=== PATIENT | female | born 1985 | race Caucasian/White ===

== ENCOUNTER 2018-09-28 07:49 | Emergency (ER) | payer MEDICAID ==
[2018-09-28] MEDS: ACETAMINOPHEN 325 MG TAB PO (08:28)
[2018-09-28 08:43] LABS: ADD MAN DIFF? NO
[2018-09-28 08:52] LABS: BASOPHILS % 0.3 % (0.0-2.0); EOSINOPHILS # 0.4 10^3/ul (0.0-0.5); EOSINOPHILS % 3.9 % (0.0-7.0); HEMATOCRIT 38.5 % (37.0-47.0); HEMOGLOBIN 13.2 g/dl (12.0-16.0); LYMPHOCYTES # 2.2 10^3/ul (0.8-2.9); LYMPHOCYTES % 21.7 % (15.0-51.0); MEAN CORPUSCULAR HEMOGLOBIN 29.2 pg (29.0-33.0); MEAN CORPUSCULAR HGB CONC 34.3 g/dl (32.0-37.0); MEAN CORPUSCULAR VOLUME 85.2 fl (82.0-101.0); MEAN PLATELET VOLUME 10.4 fl (7.4-10.4); MONOCYTE # 0.7 10^3/ul (0.3-0.9); MONOCYTES % 6.5 % (0.0-11.0); NEUTROPHIL # 6.7 10^3/ul (1.6-7.5); NEUTROPHILS % 67.2 % (39.0-77.0); PLATELET COUNT 302 10^3/UL (140-415); RED BLOOD COUNT 4.52 10^6/ul (4.20-5.40); RED CELL DISTRIBUTION WIDTH 11.9 % (11.5-14.5)
[2018-09-28 08:52] LABS: WHITE BLOOD COUNT 9.9 10^3/ul (4.8-10.8)
[2018-09-28 09:11] LABS: INR 0.94; PROTIME 12.7 Sec (11.9-14.9)
[2018-09-28 09:12] LABS: ALANINE AMINOTRANSFERASE 13 IU/L (13-69); ALBUMIN 4.4 g/dl (3.3-4.9); ALBUMIN/GLOBULIN RATIO 1.12; ALKALINE PHOSPHATASE 56 IU/L (42-121); ANION GAP 10 (5-13); ASPARTATE AMINO TRANSFERASE 19 IU/L (15-46); BILIRUBIN,INDIRECT 0.4 mg/dl (0-1.1); BILIRUBIN,TOTAL 0.4 mg/dl (0.2-1.3); BLOOD UREA NITROGEN 7 mg/dl (7-20); CALCIUM 9.9 mg/dl (8.4-10.2); CARBON DIOXIDE 25 mmol/L (21-31); CHLORIDE 104 mmol/L (97-110); CREATININE 0.49 mg/dl (0.44-1.00); Estimated GFR > 60 mL/min (>60); GLUCOSE 98 mg/dl (70-220); PARTIAL THROMBOPLASTIN TIME 30.4 Sec (23.0-35.0); POTASSIUM 3.8 mmol/L (3.5-5.1); SODIUM 139 mmol/L (135-144); TOTAL PROTEIN 8.3 g/dl (6.1-8.1)
[2018-09-28 09:24] LABS: ADD UMIC YES; UR ASCORBIC ACID NEGATIVE (NEGATIVE); UR BACTERIA FEW /HPF (NONE SEEN); UR BILIRUBIN (Dip) NEGATIVE (NEGATIVE); UR BLOOD (Dip) 1+ mg/dL (NEGATIVE); UR CLARITY CLEAR (CLEAR); UR COLOR STRAW (YELLOW); UR GLUCOSE (Dip) NEGATIVE (NEGATIVE); UR KETONES (Dip) NEGATIVE (NEGATIVE); UR LEUKOCYTE ESTERASE (Dip) NEGATIVE Leu/ul (NEGATIVE); UR NITRITE (Dip) NEGATIVE (NEGATIVE); UR RBC 0 /HPF (0-5); UR SPECIFIC GRAVITY (Dip) 1.004 (1.003-1.030); UR TOTAL PROTEIN (Dip) NEGATIVE (NEGATIVE); UR UROBILINOGEN (Dip) NEGATIVE (NEGATIVE); UR WBC 1 /HPF (0-5)
== END 2018-09-28 10:32 | disposition home or self-care (01) ==
LOC: FTE 07:49
DX: O20.9 Hemorrhage in early pregnancy, unspecified (principal); O10.911 Unspecified pre-existing hypertension complicating pregnancy, first trimester; R10.2 Pelvic and perineal pain; Z3A.08 8 weeks gestation of pregnancy
CPT/HCPCS: 36415; 76801; 80053; 81001; 84702; 85025; 85610; 85730; 86900; 86901; 99284-25

== ENCOUNTER 2019-04-09 12:35 | Inpatient (IN) | payer MEDICAID ==
[2019-04-09] MEDS: LACTATED RINGER'S 1,000 ML IV (15:21)
[2019-04-09 16:42] LABS: ADD MAN DIFF? NO
[2019-04-09 16:45] LABS: WHITE BLOOD COUNT 11.9 10^3/ul (4.8-10.8)
[2019-04-09 16:45] LABS: BASOPHILS % 0.2 % (0.0-2.0); EOSINOPHILS # 0.4 10^3/ul (0.0-0.5); HEMOGLOBIN 12.9 g/dl (12.0-16.0); LYMPHOCYTES % 17.1 % (15.0-51.0); MEAN CORPUSCULAR HEMOGLOBIN 29.9 pg (29.0-33.0); MEAN CORPUSCULAR HGB CONC 33.9 g/dl (32.0-37.0); MONOCYTE # 0.9 10^3/ul (0.3-0.9); MONOCYTES % 7.3 % (0.0-11.0); NEUTROPHIL # 8.5 10^3/ul (1.6-7.5); PLATELET COUNT 237 10^3/UL (140-415); RED BLOOD COUNT 4.32 10^6/ul (4.20-5.40); RED CELL DISTRIBUTION WIDTH 13.8 % (11.5-14.5)
[2019-04-09 17:00] LABS: INR 0.94; PROTIME 12.7 Sec (11.9-14.9)
[2019-04-09 17:01] LABS: PARTIAL THROMBOPLASTIN TIME 28.8 Sec (23.0-35.0)
[2019-04-09] MEDS ORDERED: MISOPROSTOL 200 MCG TAB PR (18:30)
[2019-04-09] MEDS ORDERED: METHYLERGONOVINE 0.2 MG INJ IM (18:30)
[2019-04-09] MEDS ORDERED: CARBOPROST 250 MCG INJ IM (18:30)
[2019-04-09] MEDS ORDERED: OXYTOCIN 30 UNITS/LR 500 ML IV (18:30)
[2019-04-09 19:07] LABS: HEPATITIS B SURFACE ANTIGEN NEGATIVE (NEGATIVE)
[2019-04-09] MEDS ORDERED: morphine 2 MG INJ IV (20:00)
[2019-04-09] MEDS ORDERED: NALBUPHINE HCL (10 MG/1 ML) INJ IV (20:00)
[2019-04-09] MEDS ORDERED: DIPHENHYDRAMINE 50 MG INJ IV (20:00)
[2019-04-09] MEDS ORDERED: TRIMETHOBENZAMIDE 100 MG/ML VIAL IM (20:00)
[2019-04-09] MEDS ORDERED: ONDANSETRON 4 MG INJ IV (20:00)
[2019-04-09] MEDS ORDERED: NALOXONE (0.4 MG/ML) INJ IV (20:00)
[2019-04-09] MEDS ORDERED: FENTAnyl 50 MCG/ML VIAL (20:11)
[2019-04-09] MEDS ORDERED: morphine SULFATE/PF (10 MG/10 ML) INJ (20:11)
[2019-04-09] MEDS ORDERED: OXYTOCIN 10 UNIT INJ (20:12)
[2019-04-09] MEDS ORDERED: METOCLOPRAMIDE 10 MG INJ (20:12)
[2019-04-09] MEDS: OXYTOCIN 30 UNITS/LR 500 ML IV (23:32)
[2019-04-09] MEDS: KETOROLAC 30 MG INJ IV (23:37)
[2019-04-10] MEDS ORDERED: CARBOPROST 250 MCG INJ IM (01:30)
[2019-04-10] MEDS ORDERED: MISOPROSTOL 200 MCG TAB PR (01:30)
[2019-04-10] MEDS ORDERED: NACL 0.9% 3 ML SYG IV (01:30)
[2019-04-10] MEDS ORDERED: METHYLERGONOVINE 0.2 MG INJ IM (01:30)
[2019-04-10] MEDS ORDERED: OXYTOCIN 30 UNITS/LR 500 ML IV (01:30)
[2019-04-10] MEDS: OXYTOCIN 30 UNITS/LR 500 ML IV (03:46)
[2019-04-10] MEDS: KETOROLAC 30 MG INJ IV ×3 (05:30→18:39)
[2019-04-10] MEDS: CEFAZOLIN 2 GM/50 ML (PMX) 50 ML IVPB (07:51)
[2019-04-10 08:09] LABS: ADD MAN DIFF? NO
[2019-04-10 08:18] LABS: BASOPHILS % 0.1 % (0.0-2.0); EOSINOPHILS # 0.2 10^3/ul (0.0-0.5); EOSINOPHILS % 1.5 % (0.0-7.0); HEMATOCRIT 31.4 % (37.0-47.0); HEMOGLOBIN 10.4 g/dl (12.0-16.0); LYMPHOCYTES # 1.4 10^3/ul (0.8-2.9); LYMPHOCYTES % 13.7 % (15.0-51.0); MEAN CORPUSCULAR HEMOGLOBIN 29.5 pg (29.0-33.0); MEAN CORPUSCULAR HGB CONC 33.1 g/dl (32.0-37.0); MEAN CORPUSCULAR VOLUME 89.2 fl (82.0-101.0); MEAN PLATELET VOLUME 11.7 fl (7.4-10.4); MONOCYTE # 0.9 10^3/ul (0.3-0.9); MONOCYTES % 9.4 % (0.0-11.0); NEUTROPHIL # 7.5 10^3/ul (1.6-7.5); PLATELET COUNT 183 10^3/UL (140-415); RED BLOOD COUNT 3.52 10^6/ul (4.20-5.40); RED CELL DISTRIBUTION WIDTH 13.7 % (11.5-14.5)
[2019-04-10] MEDS: morphine 2 MG INJ IV ×2 (10:30→16:08)
[2019-04-10] MEDS: LACTATED RINGER'S 1,000 ML IV (12:10)
[2019-04-10] MEDS: FERROUS SULFATE (EC) 325 MG TAB PO (21:29)
[2019-04-10] MEDS: OXYCODONE/ACETAMINOPHEN (5/325) TAB PO (21:29)
[2019-04-10 22:03] LABS: RAPID PLASMA REAGIN NONREACTIVE (NR)
[2019-04-11] MEDS: IBUPROFEN 800 MG TAB PO ×4 (00:50→22:59)
[2019-04-11] MEDS: OXYTOCIN 30 UNITS/LR 500 ML IV (01:45)
[2019-04-11] MEDS: LACTATED RINGER'S 1,000 ML IV (01:45)
[2019-04-11] MEDS: OXYCODONE/ACETAMINOPHEN (5/325) TAB PO ×4 (03:53→17:33)
[2019-04-11] MEDS: FERROUS SULFATE (EC) 325 MG TAB PO ×2 (08:25→21:25)
[2019-04-11] MEDS: BISACODYL 10 MG SUPP PR (17:33)
[2019-04-12] MEDS: OXYCODONE/ACETAMINOPHEN (5/325) TAB PO ×2 (04:12→17:28)
[2019-04-12] MEDS: IBUPROFEN 800 MG TAB PO ×2 (05:49→14:22)
[2019-04-12] MEDS: FERROUS SULFATE (EC) 325 MG TAB PO (09:24)
[2019-04-12] MEDS: BISACODYL 10 MG SUPP PR (13:16)
[2019-04-12] MEDS ORDERED: DOCUSATE SODIUM 100 MG CAP PO (21:00)
== END 2019-04-12 19:01 | disposition home or self-care (01) | DRG 785 ==
LOC: OBT 12:35 → PP1 04-10 00:10 → L-D 12:38 → OBT 18:00 → L-D 18:00
PROVIDERS: Obstetrics & Gynecology
PROC: 10D00Z1 Extraction of Products of Conception, Low, Open Approach (ICD-10-PCS; principal; 2019-04-09)
PROC: 0UB70ZZ Excision of Bilateral Fallopian Tubes, Open Approach (ICD-10-PCS; 2019-04-09)
DX: O60.14X0 Preterm labor third trimester with preterm delivery third trimester, not applicable or unspecified (principal); O34.211 Maternal care for low transverse scar from previous cesarean delivery; O16.4 Unspecified maternal hypertension, complicating childbirth; Z3A.36 36 weeks gestation of pregnancy; Z37.0 Single live birth; Z30.2 Encounter for sterilization
CPT/HCPCS: 36415; 76818; 85025; 85610; 85730; 86592; 86850; 86900; 86901; 87340; 88302; 96360; 96361; 99464